=== PATIENT | female | born 1940 | race Caucasian/White ===

== ENCOUNTER 2021-12-31 23:02 | Inpatient (IN) | payer MEDICARE, MEDICAID, SELFPAY ==
[2021-12-31 23:30] VITALS: BP 189/114; PULSE 100; RESP 20; TEMP 36.6; O2SAT 97; BMI 26.0
--- NOTE | 2021-12-31 23:43 | XRR_ITS ---
PROCEDURE INFORMATION: Exam: XR Left Hip Exam date and time: 12/31/2021 11:53 PM Age: 81 years old Clinical indication: Injury or trauma; Fall; Blunt trauma (contusions or hematomas); Left; Hip; Additional info: Fall hip pain TECHNIQUE: Imaging protocol: XR Left hip. Views: 1 view hip with pelvis when performed. COMPARISON: CT pelvis wo con [id number] 07/04/2018 12:35 PM FINDINGS: Bones/joints: Comminuted left intertrochanteric hip fracture with medial angulation of the distal fracture fragment. Soft tissues: Unremarkable. XR/XR hip LT 1V wo/w pel [id number] IMPRESSION: Comminuted left intertrochanteric hip fracture with medial angulation of the distal fracture fragment.
--- NOTE | 2021-12-31 23:43 | XRR_ITS ---
PROCEDURE INFORMATION: Exam: XR Chest Exam date and time: 12/31/2021 11:53 PM Age: 81 years old Clinical indication: Dyspnea; Additional info: Hip fracture TECHNIQUE: Imaging protocol: XR of the chest. Views: 1 view. COMPARISON: CR Chest 1 [place] [id number] 07/04/2018 10:19 AM FINDINGS: Lungs: Nonspecific prominence of the interstitial markings which may be secondary to mild edema versus atypical viral infection. Pleural spaces: Unremarkable. No pleural effusion. No pneumothorax. Heart/Mediastinum: There is mild cardiomegaly. Bones/joints: There has been a median sternotomy. XR/XR chest 1V portable [id number] IMPRESSION: 1. Mild cardiomegaly. 2. Nonspecific prominence of the interstitial markings which may be secondary to mild edema versus atypical viral infection.
--- NOTE | 2021-12-31 23:43 | CTR_ITS ---
PROCEDURE INFORMATION: Exam: CT Head Without Contrast Exam date and time: 01/01/2022 12:48 AM Age: 81 years old Clinical indication: Injury or trauma; Blunt trauma (contusions or hematomas); Consciousness not specified; Patient HX: Nh PT unwitnessed fall TECHNIQUE: Imaging protocol: Computed tomography of the head without contrast. Radiation optimization: All CT scans at this facility use at least one of these dose optimization techniques: automated exposure control; mA and/or kV adjustment per patient size (includes targeted exams where dose is matched to clinical indication); or iterative reconstruction. COMPARISON: CT head wo con* [id number] 07/04/2018 10:52 AM RADIATION DOSE METRICS: Total DLP (mGy-cm): 838.41 FINDINGS: Brain: No acute intracranial hemorrhage or mass effect. There is decreased attenuation in the periventricular white matter, likely from microvascular disease. There are small old lacunar infarcts in the right basal ganglia region and thalamus. Additional old infarct in the right occipital lobe. No definite acute infarct by CT. Cerebral ventricles: Ventricle size is normal for age. Paranasal sinuses: 5 mm retention cyst or polyp in the posterior left ethmoid sinus. Included paranasal sinuses otherwise appear essentially clear. Mastoid air cells: No significant acute finding. Vasculature: Vascular calcifications in the internal carotid and vertebral basilar systems. Bones/joints: No definite acute skull fracture. Soft tissues: No significant acute finding. CT/CT head wo con* [id number] IMPRESSION: 1. No acute intracranial hemorrhage or mass effect. 2. Changes of microvascular disease, and small old infarcts, details above. 3. Other findings discussed above.
[2022-01-01] VITALS (71 sets, daily range): BP systolic 92–186; BP diastolic 39–110; PULSE 74–122; RESP 10–21; TEMP 36.8; O2SAT 90–98; BMI 26.0
--- NOTE | 2022-01-01 00:03 | CTR_ITS ---
PROCEDURE INFORMATION: Exam: CT Pelvis Without Contrast; Skeletal Exam date and time: 01/01/2022 12:51 AM Age: 81 years old Clinical indication: Injury or trauma; Blunt trauma (contusions or hematomas); Left; Hip and pelvic region; Patient HX: Nh PT unwitnessed fall - L hip FX TECHNIQUE: Imaging protocol: Computed tomography images of the pelvis without contrast. Exam focused on the skeletal structures. Radiation optimization: All CT scans at this facility use at least one of these dose optimization techniques: automated exposure control; mA and/or kV adjustment per patient size (includes targeted exams where dose is matched to clinical indication); or iterative reconstruction. COMPARISON: CT pelvis wo con [id number] 07/04/2018 12:35 PM RADIATION DOSE METRICS: Total DLP (mGy-cm): 774.64 FINDINGS: Stomach and bowel: Diverticulosis without diverticulitis. Bones/joints: Intertrochanteric left hip fracture. Soft tissues: 3.1 x 4.9 cm hematoma involving the left adductor muscles. CT/CT bony pelvis [id number] IMPRESSION: 1. Intertrochanteric left hip fracture. 2. Diverticulosis without diverticulitis.
[2022-01-01] MEDS: sodium chloride 0.9% 500 ML IV (00:13)
[2022-01-01] MEDS: ondansetron 2 mg/ML SDV 2 mL 4 MG IVP (00:13)
[2022-01-01] MEDS: morphine 4 mg/mL SDV 1 mL IVP (00:13)
[2022-01-01 00:30] LABS: Basophils # 0.1 10^3/uL (0.0-0.1); Basophils % 0.5 %; Eosinophils # 0.3 10^3/uL (0.0-0.8); Hematocrit 38.9 % (37.0-47.0); Hemoglobin 13.3 g/dL (11.5-15.3); Lymphocytes # 2.2 10^3/uL (0.8-4.8); Lymphocytes % 15.1 %; Mean Corpuscular HGB Conc 34.2 g/dL (30.0-36.0); Mean Corpuscular Volume 93.7 fl (81-99); Monocytes % 6.9 %; Neutrophils # 10.63 10^3/uL (1.8-7.7); Neutrophils % 74.9 %; Nucleated Red Blood Cells % 0 %; Platelet Count 332 10^3/cmm (130-400); Red Blood Count 4.15 10^6/uL (4.1-5.3); Red Cell Distribution Width 12.8 % (12.1-15.1); White Blood Count 14.2 10^3/uL (4.0-10.0)
[2022-01-01 00:53] LABS: Alanine Aminotransferase 15 U/L (0-33); Albumin Level 4.4 g/dL (3.5-5.2); Alkaline Phosphatase 85 IU/L (35-105); Blood Urea Nitrogen 18 mg/dL (8-23); Calcium 11.7 mg/dL (8.5-10.5); Carbon Dioxide 23 mmol/L (22-29); Chloride 90 mmol/L (98-107); Globulin 3.8 g/dL (1.3-4.6); Glucose 271 mg/dL (65-115); Osmolality Calculated 275 mOsm/kg (285-295); Sodium 127 mmol/L (136-145); Total Bilirubin 0.2 mg/dL (0.15-1.2); Total Protein 8.2 g/dL (6.6-8.7)
[2022-01-01 01:00] LABS: Anion Gap 18.6 (5-19); Potassium 4.6 mmol/L (3.5-5.1)
[2022-01-01 01:01] LABS: Aspartate Amino Transferase 23 U/L (0-32)
--- NOTE | 2022-01-01 01:19 | ED_ITS ---
HPI - Extremity Problem General: Chief complaint: Extremity Injury, Lower Stated complaint: LEFT HIP PAIN Time Seen by Provider: 12/31/21 23:30 Source: patient and EMS History of Present Illness: 81-year-old demented group home patient who fell in the group home. She sustained a left lower extremity injury. She has pain with any movement. Further history is not available, as the patient is a poor historian. MD Complaint: extremity pain Onset (ago): hour(s) Pain Consistency: constant Location: left and lower extremity Quality: other Radiation: none Relieving factors: medication Exacerbating factors: range of motion Associated symptoms: Reports other; Deny chest pain Review of Systems General: Reports: ROS unobtainable due to medical condition and ROS unobtainable due to mental status Card: Denies: chest pain Resp: Denies: dyspnea [facility] ED PFSH: Medical History (Updated 01/01/22 @ 01:26 by Rafa Murillo DO) ASHD (arteriosclerotic heart disease) CKD (chronic kidney disease) CVA (cerebral vascular accident) Dementia Diabetes Dyslipidemia HTN (hypertension) Myocardial infarction Thyroid cancer Surgical History S/P CABG (coronary artery bypass graft) Physical Exam Const: GENERAL APPEARANCE: cooperative and frail appearing ORIEN TATION/CONSCIOUSNESS: Yes awake and Yes oriented to person HENMT: COMMON NORMALS: normocephalic and Normal external nose present HEAD & SCALP: normal to inspection and normocephalic FACE & SINUS: normal facial exam NOSE: Normal external nose present Eye: COMMON NORMALS: Equal, round and reactive pupils present and EOMs intact bilaterally PUPIL: Yes Equal, round and reactive pupils present Neck/C-Spine: CERVICAL SPINE: No Cervical spine tenderness Chest: COMMONS NORMALS: normal inspection of the chest Resp: COMMON NORMALS: normal respiratory effort, No use of accessory muscles and clear to auscultation bilaterally AUSCULTATION: clear to auscultation bilaterally Cardio: COMMON NORMALS: regular rate and regular rhythm RATE: regular rate RHYTHM: regular rhythm GI: COMMON NORMALS: Normal to inspection, nondistended, normoactive bowel sounds present, Soft to palpation and non-tender PALPATION: Yes Soft to palpation Extremity: NARRATIVE EXTREMITY EXAM: Exam the left lower extremity reveals shortening deformity of the left lower extremity. There is tenderness with palpation of the left lateral and anterior hip. There is no knee tenderness. Pulses and sensation are intact Neuro: SENSORIUM/ORIENTATION: Yes oriented to person Psych: COMMON NORMALS: cooperative ATTITUDE: Yes calm Course Consultations: Consultation #1: [place] Time: :39 Consultation #2: [place] Time: :39 Vital Signs: Vital signs: Vital Signs Temperature 97.8 F 12/31/21 23:30 Pulse Rate 102 H 01/01/22 01:21 Respiratory Rate 18 01/01/22 01:21 Blood Pressure 109/77 01/01/22 01:21 Pulse Oximetry 96 01/01/22 01:21 MDM - Extremity (Nontraumatic) Medical Decision Making 81-year-old female with a left displaced hip fracture. Orthopedics notified. Hospitalist notified. Lab Data : 01/01/22 00:05 01/01/22 00:[address] 12/31/21 23:43 IMPRESSION: 1. No acute intracranial hemorrhage or mass effect. 2. Changes of microvascular disease, and small old infarcts, details above. 3. Other findings discussed above. Laboratory Results WBC 14.2 10^3/uL (4.0-10.0) H 01/01/22 00:05 RBC 4.15 10^6/uL (4.1-5.3) 01/01/22 00:05 Hgb 13.3 g/dL (11.5-15.3) 01/01/22 00:05 Hct 38.9 % (37.0-47.0) 01/01/22 00:05 MCV 93.7 fl (81-99) 01/01/22 00:05 MCH 32.0 pg (28.0-34.0) 01/01/22 00:05 MCHC 34.2 g/dL (30.0-36.0) 01/01/22 00:05 RDW 12.8 % (12.1-15.1) 01/01/22 00:05 Plt Count 332 10^3/cmm (130-400) 01/01/22 00:05 MPV 10.0 fL (7.4-10.4) 01/01/22 00:05 Neut % (Auto) 74.9 % 01/01/22 00:05 Lymph % (Auto) 15.1 % 01/01/22 00:05 [place] % (Auto) 6.9 % 01/01/22 00:05 Eos % (Auto) 2.0 % 01/01/22 00:05 Baso % (Auto) 0.5 % 01/01/22 00:05 Neut # (Auto) 10.63 10^3/uL (1.8-7.7) H 01/01/22 00:05 Lymph # (Auto) 2.2 10^3/uL (0.8-4.8) 01/01/22 00:05 [place] # (Auto) 1.0 10^3/uL (0.2-0.9) H 01/01/22 00:05 Eos # (Auto) 0.3 10^3/uL (0.0-0.8) 01/01/22 00:05 Baso # (Auto) 0.1 10^3/uL (0.0-0.1) 01/01/22 00:05 Nucleated RBC % (auto) 0 % 01/01/22 00:05 Nucleated RBCs # 0.0 /100WBC 01/01/22 00:05 Sodium 127 mmol/L (136-145) L 01/01/22 00:05 Potassium 4.6 mmol/L (3.5-5.1) 01/01/22 00:05 Chloride 90 mmol/L (98-107) L 01/01/22 00:05 Carbon Dioxide 23 mmol/L (22-29) 01/01/22 00:05 Anion Gap 18.6 (5-19) 01/01/22 00:05 BUN 18 mg/dL (8-23) 01/01/22 00:05 Creatinine 0.9 mg/dL (0.5-0.9) 01/01/22 00:05 GFR Calculation Not Reportable 01/01/22 00:05 Glucose 271 mg/dL (65-115) H 01/01/22 00:05 Calculated Osmolality 275 mOsm/kg (285-295) L 01/01/22 00:05 Calcium 11.7 mg/dL (8.5-10.5) H 01/01/22 00:05 Total Bilirubin 0.2 mg/dL (0.15-1.2) 01/01/22 00:05 AST 23 U/L (0-32) 01/01/22 00:05 ALT 15 U/L (0-33) 01/01/22 00:05 Alkaline Phosphatase 85 IU/L (35-105) 01/01/22 00:05 Total Protein 8.2 g/dL (6.6-8.7) 01/01/22 00:05 Albumin 4.4 g/dL (3.5-5.2) 01/01/22 00:05 Globulin 3.8 g/dL (1.3-4.6) 01/01/22 00:05 Discharge Plan Discharge Patient Disposition: Admitted As Inpatient Clinical Impression: Closed hip fracture Qualifiers: Encounter type: initial encounter Laterality: left Qualified Code(s): S72.002A - Fracture of unspecified part of neck of left femur, initial encounter for closed fracture Condition: Stable Coding Level of Care Code ED Manager Imaging for Rik Fwjonatan Exam Comprehensive
--- NOTE | 2022-01-01 02:45 | PM.HP ---
Providers/Chief Complaint Primary Care Provider: Juanjo Quiros Jr, MD Chief Complaint: LEFT HIP PAIN History of Present Illness Radha Velásquez is a 81 year old female with a past medical history of dementia, history of CVA, history of CAD status post CABG hypertension, CKD, dyslipidemia, hypothyroidism, type 2 diabetes mellitus who presents [facility] from local intermediate due to a fall, left lower extremity pain. Currently patient is alert to person, not to place, not to time, she is a poor historian given her dementia, all she tells me that her left leg is hurting her. She is saturating in the high 90s on room air, blood pressure 109/77, pulse 102, respiratory rate 18. She has no other complaints. In the emergency room she was found to have a left hip fracture, serum sodium 127, hospitalist team was called for admission Review of Systems General: Reports: ROS unobtainable due to mental status Medications/Allergies Home Medications Medication Instructions Recorded Confirmed Last Taken Type aspirin 81 mg tablet,delayed 81 mg PO DAILY 12/01/19 01/03/21 Unknown History release (Aspir-) levothyroxine 100 mcg capsule 100 mcg PO DAILY 12/01/19 01/03/21 Unknown History lovastatin 20 mg tablet 20 mg PO DAILY 12/01/19 01/03/21 Unknown History nitroglycerin 0.4 mg sublingual 0.4 mg SUBLINGUAL Q5M PRN 12/01/19 01/03/21 Unknown History tablet (Nitrostat) metformin 1,000 mg tablet See Rx Instructions PO BID 01/12/20 01/03/21 Unknown History ergocalciferol (vitamin D2) 50 mcg 50 mcg PO DAILY 07/05/20 01/03/21 Unknown History (2,000 unit) tablet citalopram 10 mg tablet (Celexa) 10 mg PO DAILY 01/03/21 01/03/21 Unknown History Allergies Allergy/AdvReac Type Severity Reaction Status Date / Time codeine Allergy Unknown Unknown Verified 07/05/20 15:17 iodine Allergy Unknown Unknown Verified 07/05/20 15:17 Penicillins Allergy Unknown Unknown Verified 07/05/20 15:17 PFSH Acute PFSH: Medical History (Updated 01/01/22 @ 02:48 by Chris Lynne MD) ASHD (arteriosclerotic heart disease) CKD (chronic kidney disease) CVA (cerebral vascular accident) Dementia Diabetes Dyslipidemia HTN (hypertension) Myocardial infarction Thyroid cancer Surgical History (Updated 01/01/22 @ 02:47 by Chris Lynne MD) History of bilateral salpingectomy S/P CABG (coronary artery bypass graft) S/P hysterectomy S/P oophorectomy S/P thyroidectomy Vitals/I&O/Wt Last Vital Signs Temp 97.8 F 12/31/21 23:30 Pulse 102 H 01/01/22 01:21 Resp 18 01/01/22 01:21 BP 109/77 01/01/22 01:21 Pulse Ox 96 01/01/22 01:21 Weight last 48 hrs Weight 68.855 kg Physical Exam Const: COMMON NORMALS: no acute distress EXAM LIMITATIONS: altered mental status ORIENTATION/CONSCIOUSNESS: Yes awake, Yes oriented to person and Yes confused; not oriented to place and not oriented to time HENMT: COMMON NORMALS: normocephalic HEAD & SCALP: normocephalic Eye: COMMON NORMALS: Equal, round and reactive pupils present Resp: COMMON NORMALS: normal respiratory effort, No retractions, No use of accessory muscles and clear to auscultation bilaterally AUSCULTATION: clear to auscultation bilaterally Cardio: COMMON NORMALS: no JVD, regular rate, regular rhythm, S1 normal heart sound present and S2 normal heart sound present RATE: regular rate RHYTHM: regular rhythm HEART SOUNDS: S1 normal heart sound present and S2 normal heart sound present GI: COMMON NORMALS: Normal to inspection, nondistended, normoactive bowel sounds present, Soft to palpation, non-tender, No hepatosplenomegaly present, no masses and no bruits PALPATION: Yes Soft to palpation and Yes No hepatosplenomegaly present Extremity: COMMON NORMALS: capillary refill normal, no clubbing, cyanosis or edema, no calf tenderness and no pedal edema Data : 01/01/22 00:05 01/01/22 00:05 A&P Assessment and plan (1) Closed hip fracture: Status: Acute Qualifiers: Encounter type: initial encounter Laterality: left Qualified Code(s): S72.002A - Fracture of unspecified part of neck of left femur, initial encounter for closed fracture (2) Dementia: Status: Acute (3) Diabetes: Status: Acute (4) CVA (cerebral vascular accident): Status: Acute (5) ASHD (arteriosclerotic heart disease): Status: Acute (6) HTN (hypertension): Status: Acute (7) CKD (chronic kidney disease): Status: Acute (8) Dyslipidemia: Status: Acute (9) S/P CABG (coronary artery bypass graft): Status: Acute (10) Hyponatremia: Status: Acute Plan Left hip fracture -Orthopedic service on consult -N.p.o. -Morphine for pain, Zofran for nausea -Plan for surgical intervention this morning -PT OT after surgery -SCDs for DVT prophylaxis, Lovenox after surgery -Full code Hyponatremia, etiology unclear, possibly secondary dehydration, follow UA, IV hydration History of CAD, troponin series History of CVA History of dementia, will have to discuss with intermediate in a.m. her baseline cognitive level of functioning see if there is any acute change, to see if she is ambulatory Attestations Medical Necessity Statement*: Patient requires hospitalization for left hip fracture, outpatient with observation Coding Level of Care Code Acute Grab Hooker for Rik Galavizd Diagnoses Closed hip fracture S72.002A Encounter type: initial encounter Laterality: left Dementia F03.90 Diabetes E11.9 CVA (cerebral vascular accident) I63.9 ASHD (arteriosclerotic heart disease) I25.10 HTN (hypertension) I10 CKD (chronic kidney disease) N18.9 Dyslipidemia E78.5 S/P CABG (coronary artery bypass graft) Z95.1 Hyponatremia E87.1
[2022-01-01 04:01] LABS: Troponin(5th) Baseline 31 ng/L (0-10)
[2022-01-01 04:04] LABS: Estmated Average Glucose 192; Hemoglobin A1C 8.3 % (4.0-6.0)
--- NOTE | 2022-01-01 04:37 | ECG_ITS ---
[facility] Test Date: 2022-01-01 Pat Name: Radha Velásquez Department: Room: Gender: Female Assembler Body: : 1940 Requested By: Chris Lynne Order Number: [id number] Giselle MD: Angus Delcid M.D. Measurements Intervals [place] Rate: 98 P: 43 IL: 114 QRS: -59 QRSD: 145 T: 19 QT: 365 QTc: 467 Interpretive Statements SINUS RHYTHM WITH SINUS ARRHYTHMIA WITH SHORT [place] INTERVAL INDETERMINATE AXIS RIGHT BUNDLE BRANCH BLOCK [120+ ms QRS DURATION, UPRIGHT V1, 40+ ms S IN I/aVL/V4/V5/V6] LEFT ANTERIOR FASCICULAR BLOCK [QRS AXIS <= -45, QR IN I, RS IN II] Compared to ECG 01/01/2022 00:22:33 Left anterior fascicular block now present Sinus tachycardia no longer present Electronically Signed On 01-01-2022 9:03:51 CDT by Angus Delcid M.D. [id number]
[2022-01-01] MEDS: pantoprazole 40 mg SDV IVP (05:28)
[2022-01-01] MEDS: morphine 4 mg/mL SDV 1 mL 2 MG IVP ×4 (05:35→20:44)
[2022-01-01 06:07] LABS: Troponin 5 2HR 30.04 ng/L (0-10)
[2022-01-01 06:10] LABS: Troponin 5 2HR Delta -0.96 ABS# (0-10)
[2022-01-01 08:03] LABS: Glucose Point of Care 343 mg/dL (70-110)
[2022-01-01] MEDS: insulin lispro 100 unit/1 mL SUBCUT ×3 (08:04→18:21)
[2022-01-01] MEDS: atorvastatin 40 mg Tablet 20 MG PO (08:05)
[2022-01-01] MEDS: docusate sodium 100 mg Capsule PO ×2 (08:05→18:21)
[2022-01-01] MEDS: cholecalciferol (vitamin D3) 1,000 unit Tablet 2000 UNIT PO (08:05)
[2022-01-01] MEDS: aspirin 81 mg EC Tablet PO (08:05)
[2022-01-01 08:26] LABS: Cortisol Random 18.29 ug/dL (2.47-19.5)
--- NOTE | 2022-01-01 08:27 | PM.CONSULT ---
Providers/Reason For Consult Consulting Physician/Specialty*: Orthopedics Reason for Consult*: Left hip pain Attending Physician: Chris Lynne MD Primary Care Provider: Juanjo Quiros Jr, MD History of Present Illness History of Present Illness Radha Velásquez is a 81 year old female was evaluated in ER bay 9 with no family present in a poor historian due to her dementia. She was reporting left hip pain. Most of the information is gleaned from the chart and provided by the nurse. PMH of dementia, history of CVA, history of CAD status post CABG hypertension, CKD, dyslipidemia, hypothyroidism, type 2 diabetes mellitus who presents to [facility] ER from local long-term due to a fall.? Patient is a poor historian given her dementia. X-rays confirmed a left hip fracture orthopedics was consulted. An extensive review of the patient's past medical history, surgical history, allergies, medications, family history, social history, and review of systems was completed Review of Systems General: Reports: ROS unobtainable due to mental status Medications/Allergies Home Medications Medication Instructions Recorded Confirmed Last Taken Type aspirin 81 mg tablet,delayed 81 mg PO DAILY 12/01/19 01/03/21 Unknown History release (Aspir-) levothyroxine 100 mcg capsule 100 mcg PO DAILY 12/01/19 01/03/21 Unknown History lovastatin 20 mg tablet 20 mg PO DAILY 12/01/19 01/03/21 Unknown History nitroglycerin 0.4 mg sublingual 0.4 mg SUBLINGUAL Q5M PRN 12/01/19 01/03/21 Unknown History tablet (Nitrostat) metformin 1,000 mg tablet See Rx Instructions PO BID 01/12/20 01/03/21 Unknown History ergocalciferol (vitamin D2) 50 mcg 50 mcg PO DAILY 07/05/20 01/03/21 Unknown History (2,000 unit) tablet citalopram 10 mg tablet (Celexa) 10 mg PO DAILY 01/03/21 01/03/21 Unknown History Allergies Allergy/AdvReac Type Severity Reaction Status Date / Time codeine Allergy Unknown Unknown Verified 07/05/20 15:17 iodine Allergy Unknown Unknown Verified 07/05/20 15:17 Penicillins Allergy Unknown Unknown Verified 07/05/20 15:17 Current Medications Generic Name Dose Route Start Last Admin Trade Name Freq PRN Reason Stop Dose Admin Aspirin 81 mg 01/01/22 09:00 01/01/22 08:05 Aspirin 81 Mg Ec Tablet PO 81 mg DAILY MINOR Administration Atorvastatin Calcium 20 mg 01/01/22 09:00 01/01/22 08:05 Atorvastatin 40 Mg Tablet PO 20 mg DAILY MINOR Administration Docusate Sodium 100 mg 01/01/22 09:00 01/01/22 08:05 Docusate Sodium 100 Mg Capsule PO 100 mg BID MINOR Administration Insulin Human Lispro 0 unit 01/01/22 08:00 01/01/22 08:04 Insulin Lispro 100 Unit/1 Ml SUBCUT 10 unit TIDWM MINOR Administration Protocol Morphine Sulfate 2 mg 01/01/22 02:36 01/01/22 05:35 Morphine 4 Mg/Ml Sdv 1 Ml IVP 2 mg Q4H PRN Administration SEVERE PAIN Pantoprazole Sodium 40 mg 01/01/22 02:45 01/01/22 05:28 Pantoprazole 40 Mg Sdv IVP 40 mg Q24H MINOR Administration Vitamin D 2,000 unit 01/01/22 09:00 01/01/22 08:05 Cholecalciferol (Vitamin D3) 1,000 Unit Tablet PO 2,000 unit DAILY MINOR Administration PFSH Acute PFSH: Medical History (Updated 01/01/22 @ 08:33 by Freeamn Hook PA-C) ASHD (arteriosclerotic heart disease) CKD (chronic kidney disease) CVA (cerebral vascular accident) Dementia Diabetes Dyslipidemia HTN (hypertension) Myocardial infarction Thyroid cancer Surgical History (Updated 01/01/22 @ 02:47 by Chris Lynne MD) History of bilateral salpingectomy S/P CABG (coronary artery bypass graft) S/P hysterectomy S/P oophorectomy S/P thyroidectomy Vitals/I&O/Wt Last Vital Signs Temp 98.2 F 01/01/22 07:22 Pulse 74 01/01/22 07:22 Resp 17 01/01/22 07:22 BP 140/70 01/01/22 07:22 Pulse Ox 98 01/01/22 07:22 12/31/21 01/01/22 01/01/22 22:59 06:59 14:59 Intake Total 500 / 500 Balance 500 / 500 Weight last 48 hrs Weight 151 lb 12.8 oz Physical Exam Narrative: Patient was evaluated in ER bay 9 confused due to dementia. Palpable pain over the left hip positive logroll with obvious external rotation of the left lower extremity. Skin is clear warm feet are in good cap refill calves are supple no medial thigh tenderness. No apparent palpable pain in the low back thoracic or cervical spine she is moving both upper extremities with no obvious distress. HENMT: COMMON NORMALS: normocephalic and atraumatic HEAD & SCALP: normocephalic and atraumatic Resp: COMMON NORMALS: normal respiratory effort Cardio: COMMON NORMALS: regular rate and regular rhythm RATE: regular rate RHYTHM: regular rhythm GI: COMMON NORMALS: non-tender Data : 01/01/22 00:05 01/01/22 00:05 A&P Assessment and plan (1) Closed intertrochanteric fracture of left hip: We will await medical clearance proceed with open reduction internal fixation with a trochanteric femoral nail to the left hip. Discussed with Dr. Cross and he agrees above-stated plan. Status: Acute (2) Dementia: Status: Acute Coding Level of Care Code Acute Marketing Mgr for [facility] Diagnoses Closed intertrochanteric fracture of left hip S72.142A Dementia F03.90
[2022-01-01 08:28] LABS: T3 Free 1.5 PG/ML (2.0-4.4); Thyroid Stimulating Hormone 77.37 uIU/mL (0.27-4.20)
[2022-01-01] MEDS: dextrose 5%-sod chloride 0.9% 1,000 ML 75 ML IV ×2 (08:30→20:43)
--- NOTE | 2022-01-01 08:37 | ECG_ITS ---
[facility] Test Date: 2022-01-01 Pat Name: Radha Velásquez Department: Room: Gender: Female Program Development Specialist: : 1940 Requested By: Chris Lynne Order Number: [id number] Giselle MD: Angus Delcid M.D. Measurements Intervals [place] Rate: 101 P: 66 SC: 115 QRS: -27 QRSD: 148 T: 23 QT: 383 QTc: 498 Interpretive Statements SINUS TACHYCARDIA WITH SHORT SC INTERVAL RIGHT BUNDLE BRANCH BLOCK [120+ ms QRS DURATION, UPRIGHT V1, 40+ ms S IN I/aVL/V4/V5/V6] Compared to ECG 07/04/2018 09:55:42 Indeterminate axis now present Electronically Signed On 01-01-2022 9:04:30 CDT by Angus Delcid M.D. [id number]
[2022-01-01 08:38] LABS: Creatine Phosphokinase 71 U/L (26-192)
--- NOTE | 2022-01-01 10:06 | PC.PHAR ---
pt is from [facility]-medications entered are from the pts mar from [facility]
[2022-01-01 10:32] LABS: Creatine Phosphokinase 62 U/L (26-192)
[2022-01-01 10:34] LABS: Troponin 5 6HR 34.98 ng/L (0-10)
[2022-01-01 10:35] LABS: Troponin 5 6HR Delta 3.98 ng/L (0-12)
--- NOTE | 2022-01-01 10:38 | PC.CHAP ---
Pastoral Care Encounter/Spiritual Assessment Type of Contact [] Declined plastics supervisor visit [] Patient/Family/Request visit [] Outpatient visit [] Follow-up visit [] Physician referral [] Code/Alert [x] Routine visit [] Staff referral [] Actively dying [x] Patient sleeping [x] Family support [] [] Out of room [] Palliative care [] [] Receiving care in room [] Pre-surgical visit [] Trauma [] Long length of stay [x] ICU visit [x] Other: no surgery for patient today... requested tray of food... Relational/Emotional Strength [] Patient feels connected with others/family/visitors/staff [] Distress [] Loneliness/isolation [] Abandonment Spirituality of Patient [] Person of Dary [] Attends Denominational of their Dary [] Believes in Prayer [] Reads Bible or Zoroastrian materials [] There are Spiritual issues to be addressed Food Service Supervisor Interventions [x] Prayer [] Active listening [] Non-anxious presence [] Spiritual/emotional support [] Crisis/trauma care [] Spiritual counseling [] Bereavement support [] Provided bereavement packet [] Provided Bible/devotional materials [] Provided toy/stuffed animal, coloring book to patient or family member [] Provided Communion [] Anointing/Jayess [] Salvation [x] Completed spiritual assessment [] Other: Impact on Illness or Injury [] Angry [] Fearful [] Anxious [] Often cries [] Exhaustion [] Unable to work [] Unable to attend jehovah's witness [] Unable to walk/stand [] Unable to read [] Unable to drive [] Unable to eat/drink [] Unable to sleep [] Unable to be with family [] Patient intubated [] Other: Summary Time spent with patient
--- NOTE | 2022-01-01 10:53 | PM.PN ---
Subjective Subjective: Patient was reexamined this morning, patient's granddaughter Katerine is at bedside, during my examination patient recognizes her granddaughter calls her paola, but near the end of my encounter she forgets what her granddaughter is, her granddaughter tells me that her mentation has gradually declined here recently, she is not sure if her mom is taking her levothyroxine at the [facility], patient during my examination complains of right hip pain, denies any chest pain, shortness of breath, she is also telling me how the IV is giving her troubles Vitals/I&O/Wt Last Vital Signs Temp 98.2 F 01/01/22 07:22 Pulse 74 01/01/22 07:22 Resp 16 01/01/22 09:36 BP 140/70 01/01/22 07:22 Pulse Ox 96 01/01/22 09:36 12/31/21 01/01/22 01/01/22 22:59 06:59 14:59 Intake Total 500 / 500 Balance 500 / 500 Weight last 48 hrs Weight 68.855 kg Weight 68.855 kg Physical Exam Const: COMMON NORMALS: no acute distress EXAM LIMITATIONS: altered mental status ORIENTATION/CONSCIOUSNESS: Yes awake, Yes oriented to person and Yes patient obtunded; not oriented to place and not oriented to time Resp: COMMON NORMALS: normal respiratory effort, No retractions, No use of accessory muscles and clear to auscultation bilaterally AUSCULTATION: clear to auscultation bilaterally Cardio: COMMON NORMALS: regular rate, regular rhythm, S1 normal heart sound present and S2 normal heart sound present RATE: regular rate RHYTHM: regular rhythm HEART SOUNDS: S1 normal heart sound present and S2 normal heart sound present GI: COMMON NORMALS: Normal to inspection, nondistended, normoactive bowel sounds present, Soft to palpation, non-tender and No hepatosplenomegaly present PALPATION: Yes Soft to palpation and Yes No hepatosplenomegaly present Extremity: COMMON NORMALS: no pedal edema Neuro: SENSORIUM/ORIENTATION: Yes oriented to person, No oriented to place and No oriented to time Data : 01/01/22 00:05 01/01/22 00:05 A&P Assessment and plan (1) Altered mental status: Status: Acute (2) Closed intertrochanteric fracture of left hip: Status: Acute (3) Hyponatremia: Status: Acute (4) Dementia: Status: Acute (5) Diabetes: Status: Acute (6) CVA (cerebral vascular accident): Status: Acute (7) ASHD (arteriosclerotic heart disease): Status: Acute (8) HTN (hypertension): Status: Acute (9) Myxedema coma: Status: Acute (10) Elevated troponin: Status: Acute (11) Closed hip fracture: Status: Acute Qualifiers: Encounter type: initial encounter Laterality: left Qualified Code(s): S72.002A - Fracture of unspecified part of neck of left femur, initial encounter for closed fracture (12) CKD (chronic kidney disease): Status: Acute (13) Dyslipidemia: Status: Acute (14) S/P CABG (coronary artery bypass graft): Status: Acute Plan Altered mental status -Possibly patient is baseline -However granddaughter tells me that she is a bit more confused than usual, and she has had a gradual decline -UA is still pending -TSH is over 200, low T3 -Monitor mentation -Neurochecks, aspiration precautions -Full code -Lovenox for DVT prophylaxis, SCDs Myxedema coma -TSH to 237.6 -T3 1.5 -Random cortisol 18.29 -Urinalysis pending -Baseline troponin 31 -CK 62 -Lactate elevated 3.0 -Serum sodium 127 -Has a history of hypothyroidism, is on levothyroxine 100 mcg, at the [facility] -Given patient's change in mentation, elevated TSH, elevated lactic acid low serum sodium, will treat for myxedema coma given hyper avidity in mentality and plans for surgery need optimization -Discussed with granddaughter morbidity and mortality/myxedema coma, in addition risk of cardiac arrhythmias and complications with correcting TSH given her age, voiced understanding, all questions answered Plan: -We will give 150 mcg levothyroxine, and lower dose than recommended 200 due to concerns for cardiac arrhythmia given her age -Cytomel 5 mcg p.o. every 12 hours, for 2 doses -1 dose of stress dose hydrocortisone -We will treat for possible UTI, UA is pending, given her elevated white count, and morbidity and mortality associated with infection and myxedema, will treat with Rocephin for now -Recheck TSH, T3, T4 in the afternoon -Monitor hemodynamics closely -Monitor for cardiac arrhythmias -Can proceed to surgery if T3, TSH improved in the next 24 hours Left hip fracture -Orthopedic service on consult -Clears, n.p.o. over midnight -Morphine for pain, Zofran for nausea -Plan for surgical intervention this morning -PT OT after surgery -SCDs for DVT prophylaxis, Lovenox for DVT prophylaxis -Full code Hyponatremia, etiology unclear, possibly secondary dehydration, myxedema coma follow UA, IV hydration Elevated troponins, likely related to fall, possible myxedema coma Hypercalcemia, calcium 11.7, etiology unclear possible myxedema coma Elevated lactic acid, likely related to follow for myxedema coma History of CAD, monitor for chest pain History of CVA History of dementia Type 2 diabetes mellitus, low-dose sliding scale Attestations Medical Necessity Statement*: Patient requires hospitalization, inpatient, greater than 2 midnights, for left hip fracture, hyponatremia, altered mental status, myxedema coma, elevated troponins Time Spent in Patient Care: 35mins Coding Level of Care Code Acute Tape Edge Machine Operator for [facility] Fwd Diagnoses Altered mental status R41.82 Closed intertrochanteric fracture of left hip S72.142A Hyponatremia E87.1 Dementia F03.90 Diabetes E11.9 CVA (cerebral vascular accident) I63.9 ASHD (arteriosclerotic heart disease) I25.10 HTN (hypertension) I10 Myxedema coma E03.5 Elevated troponin R77.8 Closed hip fracture S72.002A Encounter type: initial encounter Laterality: left CKD (chronic kidney disease) N18.9 Dyslipidemia E78.5 S/P CABG (coronary artery bypass graft) Z95.1
[2022-01-01 11:16] LABS: Glucose Point of Care 244 mg/dL (70-110)
[2022-01-01] MEDS: enoxaparin 40 mg/0.4 mL Syringe SUBCUT (11:21)
[2022-01-01] MEDS: levothyroxine 100 mcg SDV 150 MCG IVP (11:22)
[2022-01-01] MEDS: cefTRIAXone 1,000 MG in sodium chloride 0.9% (plus) 50 ML 100 MG IV (11:22)
[2022-01-01] MEDS: hydrocortisone 100 mg/2 mL SDV IVP (12:42)
[2022-01-01] MEDS: liothyronine 5 mcg Tablet PO ×2 (14:29→20:44)
[2022-01-01 14:37] LABS: Glucose Point of Care 194 mg/dL (70-110)
[2022-01-01 18:06] LABS: Glucose Point of Care 240 mg/dL (70-110)
[2022-01-01 18:26] LABS: Free T4 Free Thyroxine 0.94 ng/dL (0.82-1.77); T3 Free 1.6 PG/ML (2.0-4.4); Thyroid Stimulating Hormone 31.32 uIU/mL (0.27-4.20)
[2022-01-01 21:25] LABS: Glucose Point of Care 214 mg/dL (70-110)
[2022-01-02] VITALS (41 sets, daily range): BP systolic 100–160; BP diastolic 42–99; PULSE 83–108; RESP 9–96; TEMP 37.1; O2SAT 90–98
[2022-01-02] MEDS: morphine 4 mg/mL SDV 1 mL 2 MG IVP ×5 (02:18→21:36)
[2022-01-02] MEDS: pantoprazole 40 mg SDV IVP (02:18)
[2022-01-02 04:30] LABS: Basophils % 0.3 %; Eosinophils % 0.2 %; Hematocrit 32.8 % (37.0-47.0); Hemoglobin 10.9 g/dL (11.5-15.3); Lymphocytes # 1.4 10^3/uL (0.8-4.8); Lymphocytes % 13.1 %; Mean Corpuscular HGB Conc 33.2 g/dL (30.0-36.0); Mean Corpuscular Hemoglobin 31.7 pg (28.0-34.0); Mean Corpuscular Volume 95.3 fl (81-99); Mean Platelet Volume 9.9 fL (7.4-10.4); Monocytes # 1.1 10^3/uL (0.2-0.9); Monocytes % 10.1 %; Neutrophils # 7.89 10^3/uL (1.8-7.7); Neutrophils % 75.8 %; Nucleated Red Blood Cells % 0 %; Platelet Count 294 10^3/cmm (130-400); Red Blood Count 3.44 10^6/uL (4.1-5.3); Red Cell Distribution Width 12.9 % (12.1-15.1); White Blood Count 10.4 10^3/uL (4.0-10.0)
[2022-01-02] MEDS: levothyroxine 100 mcg SDV IVP (04:50)
[2022-01-02] MEDS: liothyronine 5 mcg Tablet PO (04:53)
[2022-01-02 05:00] LABS: Alanine Aminotransferase 11 U/L (0-33); Alkaline Phosphatase 79 IU/L (35-105); Anion Gap 15.2 (5-19); Aspartate Amino Transferase 19 U/L (0-32); Blood Urea Nitrogen 17 mg/dL (8-23); Calcium 10.5 mg/dL (8.5-10.5); Carbon Dioxide 21 mmol/L (22-29); Chloride 97 mmol/L (98-107); Globulin 2.8 g/dL (1.3-4.6); Glucose 204 mg/dL (65-115); Magnesium 1.3 mg/dL (1.7-2.3); Osmolality Calculated 275 mOsm/kg (285-295); Phosphorus 2.2 mg/dL (2.5-4.5); Potassium 4.2 mmol/L (3.5-5.1); Sodium 129 mmol/L (136-145); Total Bilirubin 0.4 mg/dL (0.15-1.2); Total Protein 6.8 g/dL (6.6-8.7)
[2022-01-02 05:02] LABS: Lactate (Lactic Acid level) 1.5 mmol/L (0.5-2.2)
[2022-01-02 05:06] LABS: Creatine Phosphokinase 120 U/L (26-192); Free T4 Free Thyroxine 0.89 ng/dL (0.82-1.77); T3 Free 1.6 PG/ML (2.0-4.4); Thyroid Stimulating Hormone 31.77 uIU/mL (0.27-4.20)
[2022-01-02 07:23] LABS: Glucose Point of Care 213 mg/dL (70-110)
[2022-01-02] MEDS: docusate sodium 100 mg Capsule PO (08:10)
[2022-01-02] MEDS: atorvastatin 40 mg Tablet 20 MG PO (08:10)
[2022-01-02] MEDS: cholecalciferol (vitamin D3) 1,000 unit Tablet 2000 UNIT PO (08:10)
[2022-01-02] MEDS: aspirin 81 mg EC Tablet PO (08:11)
[2022-01-02] MEDS: magnesium sulfate premix 4 GM/100 ML PREMIX IV (08:41)
[2022-01-02] MEDS: haloperidol inj 5 mg/mL INJ 1 mL 1 MG IVP (08:49)
--- NOTE | 2022-01-02 08:57 | PC.NURSE ---
Patient confused pulling off vital monitoring equipment. PRN given, Family at bedside.
[2022-01-02] MEDS: LORazepam 2 mg/mL INJ 1 mL 1 MG IVP (10:17)
[2022-01-02] MEDS: FUROsemide 10 mg/mL SDV 2mL 20 MG IVP (10:22)
[2022-01-02] MEDS: cefTRIAXone 1,000 MG in sodium chloride 0.9% (plus) 50 ML 50 MG IV (10:22)
[2022-01-02] MEDS: enoxaparin 40 mg/0.4 mL Syringe SUBCUT (12:35)
[2022-01-02 12:40] LABS: Glucose Point of Care 197 mg/dL (70-110)
--- NOTE | 2022-01-02 16:25 | PM.PN ---
Subjective Subjective: Patient was seen this morning she is alert to person, not to place, not to time, she keeps fidgeting with her IV, wants to pull it out, nursing staff at bedside to reorient her, afebrile overnight, much more alert and awake Vitals/I&O/Wt Last Vital Signs Temp 98.8 F 01/02/22 08:30 Pulse 89 01/02/22 13:00 Resp 12 01/02/22 13:00 BP 139/42 01/02/22 13:00 Pulse Ox 98 01/02/22 13:00 01/02/22 01/02/22 01/02/22 06:59 14:59 22:59 Intake Total 110 / 110 Balance 110 / 110 Weight last 48 hrs Weight 68.855 kg Weight 68.855 kg Physical Exam Const: COMMON NORMALS: no acute distress ORIENTATION/CONSCIOUSNESS: Yes awake and Yes oriented to person; not oriented to place and not oriented to time HENMT: COMMON NORMALS: normocephalic HEAD & SCALP: normocephalic Resp: COMMON NORMALS: normal respiratory effort, No retractions, No use of accessory muscles and clear to auscultation bilaterally AUSCULTATION: clear to auscultation bilaterally Cardio: COMMON NORMALS: regular rate, regular rhythm, S1 normal heart sound present and S2 normal heart sound present RATE: regular rate RHYTHM: regular rhythm HEART SOUNDS: S1 normal heart sound present and S2 normal heart sound present GI: COMMON NORMALS: Normal to inspection, nondistended, normoactive bowel sounds present, Soft to palpation, non-tender and No hepatosplenomegaly present PALPATION: Yes Soft to palpation and Yes No hepatosplenomegaly present Extremity: COMMON NORMALS: no pedal edema Neuro: SENSORIUM/ORIENTATION: Yes oriented to person, No oriented to place and No oriented to time Urinary Catheter Management: Fox: Cath Placed During This Visit: yes Urinary Catheter Date of Insertion: 01/02/22 Urinary Catheter Time of Insertion: 10:00 Data : 01/02/22 03:40 01/02/22 03:40 A&P Assessment and plan (1) Altered mental status: Status: Acute (2) Closed intertrochanteric fracture of left hip: Status: Acute (3) Hyponatremia: Status: Acute (4) Dementia: Status: Acute (5) Diabetes: Status: Acute (6) CVA (cerebral vascular accident): Status: Acute (7) ASHD (arteriosclerotic heart disease): Status: Acute (8) HTN (hypertension): Status: Acute (9) Myxedema coma: Status: Acute (10) Elevated troponin: Status: Acute (11) Closed hip fracture: Status: Acute Qualifiers: Encounter type: initial encounter Laterality: left Qualified Code(s): S72.002A - Fracture of unspecified part of neck of left femur, initial encounter for closed fracture (12) CKD (chronic kidney disease): Status: Acute (13) Dyslipidemia: Status: Acute (14) S/P CABG (coronary artery bypass graft): Status: Acute Plan Altered mental status -Possibly patient is baseline -However granddaughter tells me that she is a bit more confused than usual, and she has had a gradual decline -UA i with evidence of UTI, on Rocephin -TSH is over 200, low T3 -Monitor mentation -Neurochecks, aspiration precautions -Full code -Lovenox for DVT prophylaxis, SCDs Myxedema coma -TSH to 237.6, now 31.77 -T3 1.6 -Random cortisol 18.29 -Urinalysis p with UTI -Baseline troponin 31 -CK 62 -Lactate elevated 1.5 -Serum sodium 129 -Has a history of hypothyroidism, is on [facility]othyroxine [facility] mcg, at the [facility] -Given patient's change in mentation, elevated TSH, elevated lactic acid low serum sodium, will treat for myxedema coma given hyper avidity in mentality and plans for surgery need optimization -Discussed with granddaughter morbidity and mortality/myxedema coma, in addition risk of cardiac arrhythmias and complications with correcting TSH given her age, voiced understanding, all questions answered -Status post 150 mcg levothyroxine, and lower dose than recommended 200 due to concerns for cardiac arrhythmia given her age -Cytomel 5 mcg p.o. every 12 hours, for 2 doses - status post 1 dose of stress dose hydrocortisone Plan -Continue levothyroxine 100 mcg once daily, 1 dose of Cytomel today -Adjust daily dose -Recheck TSH, T3, T4 daily -Monitor hemodynamics closely -Monitor for cardiac arrhythmias -Can proceed to surgery Left hip fracture -Orthopedic service on consult -Clears, n.p.o. over midnight -Morphine for pain, Zofran for nausea -Plan for surgical intervention this morning -PT OT after surgery -SCDs for DVT prophylaxis, Lovenox for DVT prophylaxis -Full code Hyponatremia, etiology unclear, possibly secondary dehydration, myxedema coma IV hydration Elevated troponins, likely related to fall, possible myxedema coma Hypercalcemia, resolved with IV hydration Elevated lactic acid, likely related to follow for myxedema coma History of CAD, monitor for chest pain History of CVA History of dementia Type 2 diabetes mellitus, low-dose sliding scale Attestations Medical Necessity Statement*: Patient requires hospitalization for myxedema coma, infection, proceeding to surgical intervention tomorrow morning Coding Level of Care Code Acute Tubing Machine Operator for g Fwd Diagnoses Altered mental status R41.82 Closed intertrochanteric fracture of left hip S72.142A Hyponatremia E87.1 Dementia F03.90 Diabetes E11.9 CVA (cerebral vascular accident) I63.9 ASHD (arteriosclerotic heart disease) I25.10 HTN (hypertension) I10 Myxedema coma E03.5 Elevated troponin R77.8 Closed hip fracture S72.002A Encounter type: initial encounter Laterality: left CKD (chronic kidney disease) N18.9 Dyslipidemia E78.5 S/P CABG (coronary artery bypass graft) Z95.1
[2022-01-02 17:11] LABS: Glucose Point of Care 226 mg/dL (70-110)
--- NOTE | 2022-01-02 17:59 | PC.SLP ---
Patient was not alert for most the day when the CANE FLUME FEEDING MACHINE OPERATOR attempted assessment. Patient does not want to try anything to eat this evening. CANE FLUME FEEDING MACHINE OPERATOR will try to follow the patient tomorrow.
[2022-01-02] MEDS: LORazepam 2 mg/mL INJ 1 mL 0.5 MG IVP ×2 (18:27→23:49)
[2022-01-02 21:52] LABS: Glucose Point of Care 261 mg/dL (70-110)
[2022-01-03] VITALS (42 sets, daily range): BP systolic 89–178; BP diastolic 47–116; PULSE 77–110; RESP 10–18; TEMP 36.4–37.2; O2SAT 92–100
--- NOTE | 2022-01-03 | SCC_ITS ---
Procedure done: left intramedullary nail for intertrochanteric femur fx 80 seconds of fluoroscopic guidance, for a cumulative dose of 12.07 mGy, was provided to Dr. Cross by the radiology department. C-arm images of the LEFT hip were saved for the patient's permanent record. [facility]
[2022-01-03] MEDS: pantoprazole 40 mg SDV IVP (03:49)
[2022-01-03] MEDS: morphine 4 mg/mL SDV 1 mL 2 MG IVP ×3 (03:49→12:58)
[2022-01-03 04:19] LABS: Basophils % 0.4 %; Eosinophils % 0.4 %; Hematocrit 37.7 % (37.0-47.0); Hemoglobin 11.6 g/dL (11.5-15.3); Lymphocytes # 1.2 10^3/uL (0.8-4.8); Lymphocytes % 10.3 %; Mean Corpuscular HGB Conc 30.8 g/dL (30.0-36.0); Mean Corpuscular Volume 104.1 fl (81-99); Mean Platelet Volume 9.5 fL (7.4-10.4); Monocytes # 1.4 10^3/uL (0.2-0.9); Monocytes % 12.1 %; Neutrophils # 8.58 10^3/uL (1.8-7.7); Neutrophils % 76.4 %; Nucleated Red Blood Cells % 0 %; Platelet Count 241 10^3/cmm (130-400); Red Blood Count 3.62 10^6/uL (4.1-5.3); White Blood Count 11.2 10^3/uL (4.0-10.0)
[2022-01-03 04:45] LABS: Alanine Aminotransferase 11 U/L (0-33); Albumin Level 3.6 g/dL (3.5-5.2); Alkaline Phosphatase 78 IU/L (35-105); Anion Gap 15.5 (5-19); Aspartate Amino Transferase 20 U/L (0-32); Blood Urea Nitrogen 17 mg/dL (8-23); Calcium 10.3 mg/dL (8.5-10.5); Carbon Dioxide 21 mmol/L (22-29); Chloride 96 mmol/L (98-107); Globulin 3.5 g/dL (1.3-4.6); Glucose 253 mg/dL (65-115); Osmolality Calculated 276 mOsm/kg (285-295); Phosphorus 2.6 mg/dL (2.5-4.5); Potassium 4.5 mmol/L (3.5-5.1); Sodium 128 mmol/L (136-145); Total Bilirubin 0.4 mg/dL (0.15-1.2); Total Protein 7.1 g/dL (6.6-8.7)
[2022-01-03 04:47] LABS: Lactate (Lactic Acid level) 1.5 mmol/L (0.5-2.2)
[2022-01-03 04:53] LABS: Creatine Phosphokinase 249 U/L (26-192); Free T4 Free Thyroxine 0.93 ng/dL (0.82-1.77); T3 Free 1.4 PG/ML (2.0-4.4); Thyroid Stimulating Hormone 30.01 uIU/mL (0.27-4.20)
[2022-01-03] MEDS: levothyroxine 100 mcg SDV 75 MCG IVP (05:44)
[2022-01-03 08:51] LABS: Glucose Point of Care 178 mg/dL (70-110)
[2022-01-03] MEDS: LORazepam 2 mg/mL INJ 1 mL 0.5 MG IVP ×2 (09:16→17:59)
--- NOTE | 2022-01-03 09:58 | W.PM.OPSUD ---
Surgery/Procedure H&P Update DATE OF PROCEDURE: January 03, 2022 DATE H&P PERFORMED: 01/01/22 H&P UPDATE INFORMATION: I have reviewed H&P completed within last 30 days, I have examined patient prior to procedure and No changes to prior documentation PLANNED PROCEDURE: Operation Date: 01/03/22 10:00 Proposed Procedures p Trochanteric Femoral Nail(Left) - Barry Cross DO
--- NOTE | 2022-01-03 10:24 | ANES.PREANE2 ---
Pre-Anesthetic Assessment Height/Weight: Height 1.63 m Weight 68.855 kg Temp Pulse Resp BP Pulse Ox 98.8 F 94 18 131/77 98 01/02/22 08:30 01/03/22 05:15 01/03/22 09:45 01/03/22 05:15 01/03/22 09:45 Preop Diagnosis: acute fx Operation Date: 01/03/22 10:00 Proposed Procedures p Trochanteric Femoral Nail(Left) - Barry Cross, DO Familial anesthetic complications: Hx from POA ([facility]) No hx of complications Was Beta Nicolette taken within 24 hours: N/A Was Clonidine taken within 24 hours: N/A Social No alcohol and No tobacco Exam alert, clear to auscultation bilaterally and regular rate & rhythm Confused pulling at lines Airway Comments: Comments: Unable to cooperate with airway exam Pulmonary None reported CV/HEM Congestive Heart Failure, Hypertension and Myocardial Infarction Hx of CABG per family METS < 4 EKG 01/01/22 Interpretive Statements SINUS TACHYCARDIA WITH SHORT PA INTERVAL RIGHT BUNDLE BRANCH BLOCK? [120+ ms QRS DURATION, UPRIGHT V1, 40+ ms S IN I/aVL/V4/V5/V6] Compared to ECG 07/04/2018 09:55:42 Indeterminate axis now present Electronically Signed On 01-01-2022 9:04:30 CDT by Angus Delcid M.D. [email or web address] Chronic Renal Insufficiency Hyponatremia Metabolic Diabetes Mellitus and Thyroid Disease (Myxedma coma ) [facility] [place] Osteoarthritis/DJD Acute fx Neuropsych Cerebrovascular Accident and Dementia Head CT 12/31/21 CT/CT head wo con* [id number] IMPRESSION: 1. No acute intracranial hemorrhage or mass effect. 2. Changes of microvascular disease, and small old infarcts, details above. 3. Other findings discussed above. ? Anesthetic Plan ASA status: 4 Anesthesia: Anesthesia Evaluation and General Other: Consent form POA. We discussed risk and benefits of general anesthesia including PONV, sore throat (sometimes severe), corneal abrasion, positioning and peripheral nerve injuries, life threatening allergic reaction, post operative ICU admission requiring prolonged intubation, stroke, heart attack, , and rare incidences of recall. POA and grandaugthers consent to proceed with general anesthesia. Risk of > 500 ml blood loss (7ml/kg in children): No Medications/Allergies Home Medications Medication Instructions Recorded Confirmed Last Taken Type lovastatin 20 mg tablet 20 mg PO BEDTIME 12/01/19 01/01/22 Unknown History House Supplement 90 ml PO TID 01/01/22 01/01/22 Unknown History acetaminophen 325 mg tablet 650 mg PO Q6H PRN 01/01/22 01/01/22 Unknown History (Tylenol) aspirin 81 mg tablet,delayed 81 mg PO DAILY 01/01/22 01/01/22 Unknown History release bisacodyl 10 mg rectal suppository 10 mg PA DAILY PRN 01/01/22 01/01/22 Unknown History (Dulcolax (bisacodyl)) docusate sodium 100 mg capsule 200 mg PO BEDTIME 01/01/22 01/01/22 Unknown History (Colace) gabapentin 100 mg capsule 100 mg PO BEDTIME 01/01/22 01/01/22 Unknown History levothyroxine 88 mcg tablet 88 mcg PO QAM 01/01/22 01/01/22 Unknown History magnesium hydroxide 400 mg/5 mL 30 ml PO DAILY PRN 01/01/22 01/01/22 Unknown History oral suspension (Milk of Magnesia) metformin 500 mg tablet 500 mg PO BID 01/01/22 01/01/22 Unknown History mirtazapine 15 mg tablet (Remeron) 7.5 mg PO BEDTIME 01/01/22 01/01/22 Unknown History nitroglycerin 0.4 mg sublingual 0.4 mg SUBLINGUAL Q5M PRN 01/01/22 01/01/22 Unknown History tablet (Nitrostat) sodium phosphates 19 gram-7 118 ml PA DAILY PRN 01/01/22 01/01/22 Unknown History gram/118 mL enema (Fleet Enema) Allergies Allergy/AdvReac Type Severity Reaction Status Date / Time codeine Allergy Unknown Unknown Verified 01/01/22 10:06 iodine Allergy Unknown Unknown Verified 01/01/22 10:06 Penicillins Allergy Unknown Unknown Verified 01/01/22 10:06 Current Medications Generic Name Dose Route Start Last Admin Trade Name Freq PRN Reason Stop Dose Admin Aspirin 81 mg 01/01/22 09:00 01/03/22 08:51 Aspirin 81 Mg Ec Tablet PO Not Given DAILY [facility] Atorvastatin Calcium 20 mg 01/01/22 09:00 01/03/22 08:51 Atorvastatin 40 Mg Tablet PO Not Given DAILY [facility] Docusate Sodium 100 mg 01/01/22 09:00 01/03/22 08:51 Docusate Sodium 100 Mg Capsule PO Not Given BID MINOR Enoxaparin Sodium 40 mg 01/01/22 11:30 01/02/22 12:35 Enoxaparin 40 Mg/0.4 Ml Syringe SUBCUT 40 mg Q24H MINOR Administration Gabapentin 100 mg 01/03/22 00:59 01/03/22 01:06 Gabapentin 100 Mg Capsule PO Not Given BEDTIME [facility] Haloperidol Lactate 1 mg 01/02/22 08:35 01/02/22 08:49 Haloperidol Inj 5 Mg/Ml Inj 1 Ml IVP 1 mg Q4H PRN Administration AGITATION Ceftriaxone Sodium 1,000 mg/ 50 mls @ 100 mls/hr 01/01/22 11:00 01/02/22 12:40 Sodium Chloride IV Infused Q24H [facility] Infusion Protocol Insulin Human Lispro 0 unit 01/01/22 08:00 01/03/22 08:50 Insulin Lispro 100 Unit/1 Ml SUBCUT Not Given TIDWM [facility] Protocol Levothyroxine Sodium 75 mcg 01/03/22 06:00 01/03/22 05:44 Levothyroxine 100 Mcg Sdv IVP 75 mcg Q24H MINOR Administration Lorazepam 0.5 mg 01/02/22 13:44 01/03/22 09:16 Lorazepam 2 Mg/Ml Inj 1 Ml IVP 0.5 mg Q4H PRN Administration ANXIETY Mirtazapine 7.5 mg 01/03/22 00:59 01/03/22 01:06 Mirtazapine 15 Mg Tablet PO Not Given BEDTIME MINOR Morphine Sulfate 2 mg 01/01/22 02:36 01/03/22 09:45 Morphine 4 Mg/Ml Sdv 1 Ml IVP 2 mg Q4H PRN Administration SEVERE PAIN Pantoprazole Sodium 40 mg 01/01/22 02:45 01/03/22 03:49 Pantoprazole 40 Mg Sdv IVP 40 mg Q24H MINOR Administration Pantoprazole Sodium 40 mg 01/03/22 09:00 01/03/22 08:[address] 40 Mg Tablet PO Not Given DAILY [facility] Vitamin D 2,000 unit 01/01/22 09:00 01/03/22 08:51 Cholecalciferol (Vitamin D3) 1,000 Unit Tablet PO Not Given DAILY [facility] Anesthesia Medical History ASHD (arteriosclerotic heart disease) CKD (chronic kidney disease) CVA (cerebral vascular accident) Dementia Diabetes Dyslipidemia HTN (hypertension) Myocardial infarction Thyroid cancer Surgical History History of bilateral salpingectomy S/P CABG (coronary artery bypass graft) S/P hysterectomy S/P oophorectomy S/P thyroidectomy Data Anesthesia : 01/03/22 03:54 01/03/22 03:54 Short CBC 01/02/22 01/03/22 Range/Units 03:40 03:54 WBC 10.4 H 11.2 H (4.0-10.0) 10^3/uL Hgb 10.9 L 11.6 (11.5-15.3) g/dL Hct 32.8 L 37.7 (37.0-47.0) % MCV 95.3 104.1 H D (81-99) fl Plt Count 294 241 (130-400) 10^3/cmm Neut % (Auto) 75.8 76.4 % Neut # (Auto) 7.89 H 8.58 H (1.8-7.7) 10^3/uL BMP 01/02/22 01/03/22 03:40 03:54 Sodium 129 L 128 L Potassium 4.2 4.5 Chloride 97 L 96 L Carbon Dioxide 21 L 21 L BUN 17 17 Creatinine 0.9 1.0 H Glucose 204 H 253 H Calcium 10.5 10.3 Cardiac Enzymes 01/01/22 01/01/22 01/02/22 Range/Units 09:48 09:48 03:40 Creatine Kinase 62 120 (26-192) U/L Troponin T Hi Sens 6Hr 34.98 H (0-10) ng/L Troponin T Hi Sens 6Hr Delta 3.98 (0-12) ng/L 01/03/22 Range/Units 03:54 Creatine Kinase 249 H (26-192) U/L Troponin T Hi Sens 6Hr (0-10) ng/L Troponin T Hi Sens 6Hr Delta (0-12) ng/L Liver Function 01/02/22 01/03/22 Range/Units 03:40 03:54 Total Bilirubin 0.4 0.4 (0.15-1.2) mg/dL AST 19 20 (0-32) U/L ALT 11 11 (0-33) U/L Alkaline Phosphatase 79 78 (35-105) IU/L Albumin 4.0 3.6 (3.5-5.2) g/dL Cardiac Studies: No Data to Display
[2022-01-03] MEDS: clindamycin 900 MG/50 ML PREMIX 100 MG IV ×2 (10:56→18:07)
[2022-01-03 11:02] LABS: T4 Total 4.4 mcg/dL (5.1-11.9)
--- NOTE | 2022-01-03 11:22 | XR_ITS ---
WS: [id number] Exam: XR hip LT 1V wo/w pel [id number] Date/Time of Exam: 01/03/2022 11:22 AM Reason For Exam: OR PICS Intraoperative AP and lateral C-arm images of the left hip are submitted for evaluation. There is internal orthopedic fixation involving an intertrochanteric fracture of the right hip. An in tramedullary rome and femoral neck screw stabilize a fracture in satisfactory alignment for healing. XR/XR hip LT 1V wo/w pel [id number] IMPRESSION: 1. Internal orthopedic fixation involving an intertrochanteric fracture of the left hip. Alignment is satisfactory for healing.
--- NOTE | 2022-01-03 11:26 | P.OP_ITS ---
Operative Report Date of procedure: January 03, 2022 Pre-op diagnosis: Preop Diagnosis left Intertrochanteric hip fracture Post-op diagnosis: same Procedure done: left intramedullary nail for intertrochanteric femur fx Surgeon: Barry Cross Aligner Barrel And Receiver: Freeman Hook Aligner Barrel And Receiver: The rn medical surgical, Freeman Hook, PAC was needed for his expertise with fracture care. He was important and necessary throughout the procedure to complete in a safe and timely manner. He assisted with patient positioning prepping and draping tissue retraction suctioning of the operative field protection of the critical structures and tissue closure Estimated blood loss (mL): 30 Procedure: left intramedullary nail for intertrochanteric femur fx
--- NOTE | 2022-01-03 11:51 | PC.CHAP ---
Pastoral Care Encounter/Spiritual Assessment Type of Contact [] Declined archivist military history visit [] Patient/Family/Request visit [] Outpatient visit [] Follow-up visit [] Physician referral [] Code/Alert [x] Routine visit [] Staff referral [] Actively dying [] Patient sleeping [x] Family support [] [] Out of room [] Palliative care [] [] Receiving care in room [] Pre-surgical visit [] Trauma [] Long length of stay [x] ICU visit [x] Other: preparing for surgery... patient has dementia Relational/Emotional Strength [] Patient feels connected with others/family/visitors/staff [] Distress [] Loneliness/isolation [] Abandonment Spirituality of Patient [] Person of Dary [] Attends Presybeterian of their Dary [] Believes in Prayer [] Reads Bible or Druze materials [] There are Spiritual issues to be addressed Elevator Tender Interventions [x] Prayer [] Active listening [] Non-anxious presence [] Spiritual/emotional support [] Crisis/trauma care [] Spiritual counseling [] Bereavement support [] Provided bereavement packet [] Provided Bible/devotional materials [] Provided toy/stuffed animal, coloring book to patient or family member [] Provided Communion [] Anointing/[place] [] Salvation [x] Completed spiritual assessment [] Other: Impact on Illness or Injury [] Angry [] Fearful [] Anxious [] Often cries [] Exhaustion [] Unable to work [] Unable to attend spiritism [] Unable to walk/stand [] Unable to read [] Unable to drive [] Unable to eat/drink [] Unable to sleep [] Unable to be with family [] Patient intubated [] Other: Summary Time spent with patient
--- NOTE | 2022-01-03 12:07 | PC.NURSE ---
Report called to JAIMIE Marshall, MS [phone]. Family notified. Belongings to be taken to room.
--- NOTE | 2022-01-03 13:08 | P.PN_ITS ---
Subjective Subjective: Patient was seen this morning, family at bedside, she continues to have episodes of agitation, she is pulling out her IV lines, complaining of hip pain, Vitals/I&O/Wt Last Vital Signs Temp 98.7 F 01/03/22 12:20 Pulse 101 H 01/03/22 13:00 Resp 18 01/03/22 13:00 BP 174/85 01/03/22 13:00 Pulse Ox 93 01/03/22 13:00 01/02/22 01/03/22 01/03/22 22:59 06:59 14:59 Intake Total 1100 / 1210 450 / 450 Output Total 1600 / 1600 150 / 1750 130 / 130 Balance -500 / -390 -150 / -540 320 / 320 Physical Exam Const: COMMON NORMALS: no acute distress EXAM LIMITATIONS: altered mental status Resp: COMMON NORMALS: normal respiratory effort, No retractions, No use of accessory muscles and clear to auscultation bilaterally AUSCULTATION: clear to auscultation bilaterally Cardio: COMMON NORMALS: regular rate, regular rhythm, S1 normal heart sound present and S2 normal heart sound present RATE: regular rate RHYTHM: regular rhythm HEART SOUNDS: S1 normal heart sound present and S2 normal heart sound present GI: COMMON NORMALS: Normal to inspection, nondistended, normoactive bowel sounds present, Soft to palpation, non-tender and No hepatosplenomegaly present PALPATION: Yes Soft to palpation and Yes No hepatosplenomegaly present Extremity: COMMON NORMALS: no pedal edema Urinary Catheter Management: Fox: Cath Placed During This Visit: yes Reason for Continuing Indwelling Catheter: Accurate Measurement of Urinary Output in Critically Ill Patients Urinary Catheter Date of Insertion: 01/02/22 Urinary Catheter Time of Insertion: 10:00 Data : 01/03/22 03:54 01/03/22 03:54 A&P Assessment and plan (1) Altered mental status: Status: Acute (2) Closed intertrochanteric fracture of left hip: Status: Acute (3) Hyponatremia: Status: Acute (4) Dementia: Status: Acute (5) Diabetes: Status: Acute (6) CVA (cerebral vascular accident): Status: Acute (7) ASHD (arteriosclerotic heart disease): Status: Acute (8) HTN (hypertension): Status: Acute (9) Myxedema coma: Status: Acute (10) Elevated troponin: Status: Acute (11) Closed hip fracture: Status: Acute Qualifiers: Encounter type: initial encounter Laterality: left Qualified Code(s): S72.002A - Fracture of unspecified part of neck of left femur, initial encounter for closed fracture (12) CKD (chronic kidney disease): Status: Acute (13) Dyslipidemia: Status: Acute (14) S/P CABG (coronary artery bypass graft): Status: Acute Plan Altered mental status -Possibly patient is baseline -However granddaughter tells me that she is a bit more confused than usual, and she has had a gradual decline -UA i with evidence of UTI, on Rocephin -TSH is over 200, low T3 -Monitor mentation -Neurochecks, aspiration precautions -Full code -Lovenox for DVT prophylaxis, SCDs Myxedema coma -TSH to 237.6, now 31.77 -T3 1.6 -Random cortisol 18.29 -Urinalysis p with UTI -Baseline troponin 31 -CK 62 -Lactate elevated 1.5 -Serum sodium 129 -Has a history of hypothyroidism, is on levothyroxine 100 mcg, at the half-way -Given patient's change in mentation, elevated TSH, elevated lactic acid low serum sodium, will treat for myxedema coma given hyper avidity in mentality and plans for surgery need optimization -Discussed with granddaughter morbidity and mortality/myxedema coma, in addition risk of cardiac arrhythmias and complications with correcting TSH given her age, voiced understanding, all questions answered -Status post 150 mcg levothyroxine, and lower dose than recommended 200 due to concerns for cardiac arrhythmia given her age -Cytomel 5 mcg p.o. every 12 hours, for 2 doses - status post 1 dose of stress dose hydrocortisone Plan -Continue levothyroxine 150 mg p.o. daily -Adjust daily dose -Recheck TSH, T3, T4 daily -Monitor hemodynamics closely -Monitor for cardiac arrhythmias -Can proceed to surgery Left hip fracture -Orthopedic service on consult -N.p.o., will undergo surgical intervention today -Morphine for pain, Zofran for nausea -PT OT after surgery -SCDs for DVT prophylaxis, Lovenox for DVT prophylaxis -Full code Hyponatremia, etiology unclear, possibly secondary dehydration, myxedema coma IV hydration Elevated troponins, likely related to fall, possible myxedema coma Hypercalcemia, resolved with IV hydration Elevated lactic acid, likely related to follow for myxedema coma History of CAD, monitor for chest pain History of CVA History of dementia Type 2 diabetes mellitus, low-dose sliding scale Attestations Medical Necessity Statement*: Patient requires hospitalization for hip fracture, myxedema coma, requiring inpatient admission, UTI Coding Level of Care Code Acute Family Reunification Specialist for Chg Fwd Diagnoses Altered mental status R41.82 Closed intertrochanteric fracture of left hip S72.142A Hyponatremia E87.1 Dementia F03.90 Diabetes E11.9 CVA (cerebral vascular accident) I63.9 ASHD (arteriosclerotic heart disease) I25.10 HTN (hypertension) I10 Myxedema coma E03.5 Elevated troponin R77.8 Closed hip fracture S72.002A Encounter type: initial encounter Laterality: left CKD (chronic kidney disease) N18.9 Dyslipidemia E78.5 S/P CABG (coronary artery bypass graft) Z95.1
--- NOTE | 2022-01-03 16:09 | ANE.PACU2 ---
Inpatient post-anesthesia follow up: Airway intact: Yes Vital signs: Temperature 98.6 F Pulse Rate 92 Respiratory Rate 18 Blood Pressure 154/80 Pulse Oximetry 96 Oxygen Delivery Me thod Room Air Oxygen Flow Rate 6 Fraction of Inspir ed Oxygen Hydration adequate: Yes Nausea and vomiting: No Pain level: 1 Mental status: Baseline
[2022-01-03 18:14] LABS: Glucose Point of Care 322 mg/dL (70-110)
[2022-01-03] MEDS: insulin lispro 100 unit/1 mL SUBCUT (18:17)
[2022-01-03 18:20] LABS: Glucose Point of Care 269 mg/dL (70-110)
[2022-01-03] MEDS: mirtazapine 15 mg Tablet 7.5 MG PO (22:58)
[2022-01-03] MEDS: gabapentin 100 mg Capsule PO (22:59)
[2022-01-03] MEDS: cefTRIAXone 1,000 MG in sodium chloride 0.9% (plus) 50 ML 100 MG IV (22:59)
[2022-01-03] MEDS: enoxaparin 40 mg/0.4 mL Syringe SUBCUT (22:59)
[2022-01-04] VITALS (7 sets, daily range): BP systolic 132–151; BP diastolic 55–86; PULSE 75–99; RESP 18; TEMP 35.9–37.1; O2SAT 92–97
[2022-01-04] MEDS: morphine 4 mg/mL SDV 1 mL 2 MG IVP (01:16)
--- NOTE | 2022-01-04 01:22 | PC.NURSE ---
PATIENT STILL HAS YET TO VOID AT THIS TIME. THIS RN PREFORMED BLADDER SCAN. BLADDER SCAN SHOWS PATIENT HAS [address] MUÑOZ NOTIFIED AT THIS TIME. NEW ORDER RECEIVED TO STRAIGHT CATH X1.
[2022-01-04] MEDS: pantoprazole 40 mg SDV IVP (02:20)
[2022-01-04] MEDS: clindamycin 900 MG/50 ML PREMIX 100 MG IV (02:20)
[2022-01-04 05:15] LABS: Basophils % 0.3 %; Eosinophils % 0.3 %; Hematocrit 30.7 % (37.0-47.0); Hemoglobin 9.9 g/dL (11.5-15.3); Lymphocytes # 1.2 10^3/uL (0.8-4.8); Lymphocytes % 12.3 %; Mean Corpuscular HGB Conc 32.2 g/dL (30.0-36.0); Mean Corpuscular Hemoglobin 31.6 pg (28.0-34.0); Mean Corpuscular Volume 98.1 fl (81-99); Mean Platelet Volume 10.1 fL (7.4-10.4); Monocytes # 1.3 10^3/uL (0.2-0.9); Monocytes % 13.1 %; Neutrophils # 7.07 10^3/uL (1.8-7.7); Neutrophils % 73.5 %; Nucleated Red Blood Cells % 0 %; Platelet Count 261 10^3/cmm (130-400); Red Blood Count 3.13 10^6/uL (4.1-5.3); White Blood Count 9.6 10^3/uL (4.0-10.0)
[2022-01-04] MEDS: levothyroxine 150 mcg Tablet PO (05:32)
[2022-01-04 05:42] LABS: Alanine Aminotransferase 12 U/L (0-33); Albumin Level 3.2 g/dL (3.5-5.2); Alkaline Phosphatase 82 IU/L (35-105); Anion Gap 15.8 (5-19); Aspartate Amino Transferase 35 U/L (0-32); Blood Urea Nitrogen 18 mg/dL (8-23); Calcium 9.8 mg/dL (8.5-10.5); Carbon Dioxide 21 mmol/L (22-29); Chloride 99 mmol/L (98-107); Globulin 3.3 g/dL (1.3-4.6); Glucose 183 mg/dL (65-115); Magnesium 1.5 mg/dL (1.7-2.3); Osmolality Calculated 281 mOsm/kg (285-295); Phosphorus 1.6 mg/dL (2.5-4.5); Potassium 3.8 mmol/L (3.5-5.1); Sodium 132 mmol/L (136-145); Total Bilirubin 0.6 mg/dL (0.15-1.2); Total Protein 6.5 g/dL (6.6-8.7)
[2022-01-04 05:49] LABS: Free T4 Free Thyroxine 1.25 ng/dL (0.82-1.77); T3 Free 1.6 PG/ML (2.0-4.4)
[2022-01-04 06:41] LABS: Glucose Point of Care 181 mg/dL (70-110)
[2022-01-04 06:41] LABS: Glucose Point of Care 204 mg/dL (70-110)
--- NOTE | 2022-01-04 08:00 | PC.NURSE ---
Patient laying in bed at this time. Patient awake but completely naked laying in bed. Patient disoriented at this time. bed locked and in lowest position. call light and personal items in reach. will continue plan of care
[2022-01-04] MEDS: insulin lispro 100 unit/1 mL SUBCUT ×2 (08:29→11:52)
[2022-01-04] MEDS: cholecalciferol (vitamin D3) 1,000 unit Tablet 2000 UNIT PO (08:31)
[2022-01-04] MEDS: pantoprazole DR 40 mg Tablet PO (08:31)
[2022-01-04] MEDS: docusate sodium 100 mg Capsule PO (08:32)
[2022-01-04] MEDS: atorvastatin 40 mg Tablet 20 MG PO (08:32)
[2022-01-04] MEDS: phosphorus 250 mg Tablet PO (08:39)
[2022-01-04] MEDS: magnesium sulfate premix 4 GM/100 ML PREMIX IV (08:44)
[2022-01-04] MEDS: aspirin 81 mg EC Tablet PO (11:53)
--- NOTE | 2022-01-04 12:34 | P.DS_ITS ---
Discharge Providers Date of Admission: 01/01/22 02:36 Date of Discharge: January 04, 2022 Attending Provider at Admission: Chris Lynne MD Attending Provider at Discharge: Chris Lynne MD Primary Care Provider: Juanjo Quiros Jr, MD Diagnoses at Discharge Discharge Diagnosis (1) Altered mental status: Status: Acute (2) Closed intertrochanteric fracture of left hip: Status: Acute (3) Hyponatremia: Status: Acute (4) Dementia: Status: Acute (5) Diabetes: Status: Acute (6) CVA (cerebral vascular accident): Status: Acute (7) ASHD (arteriosclerotic heart disease): Status: Acute (8) HTN (hypertension): Status: Acute (9) Myxedema coma: Status: Acute (10) Elevated troponin: Status: Acute (11) Closed hip fracture: Status: Acute Qualifiers: Encounter type: initial encounter Laterality: left Qualified Code(s): S72.002A - Fracture of unspecified part of neck of left femur, initial encounter for closed fracture (12) CKD (chronic kidney disease): Status: Acute (13) Dyslipidemia: Status: Acute (14) S/P CABG (coronary artery bypass graft): Status: Acute Reason for Visit Reason for Visit: LEFT HIP PAIN Hospital Course Hospital Course Radha Velásquez is a 81 year old female with a past medical history of dementia, history of CVA, history of CAD status post CABG hypertension, CKD, dyslipidemia, hypothyroidism, type 2 diabetes mellitus who presents [facility] from local residential due to a fall, left lower extremity pain.? Patient was admitted to [facility] for left hip fracture, status post left intramedullary nail for intra-trochanteric femur fracture, tolerated procedure well, discharged back to residential Patient was found to have myxedema coma during her hospitalization, TSH as high as 237.7, with UTI, requiring IV levothyroxine, Cytomel, and ICU admission for 24 hours, her TSH improved, no hemodynamic compromise. Will be discharged on 150 mcg of levothyroxine once daily. Recheck TSH, T3, T4 in 1 week. Patient was also found to have a UTI during hospitalization discharged on ciprofloxacin Patient was also found to have altered mental status likely secondary to UTI, myxedema, during hospitalization. Does have significant dementia at baseline. During hospitalization she continued to have episodes of agitation at times, ripping out her IVs, alert oriented to person, not to place, not to time. Her granddaughter tells me that sometimes she can recognize her, sometimes she cannot, and she has had a gradual decline in her cognitive functioning in the last year. Discharge back to residential. Physical Exam Const: COMMON NORMALS: no acute distress OTHER: Alert to person, not to place, not to time, takes out her IV, does follow commands, but does become agitated easily Resp: COMMON NORMALS: normal respiratory effort, No retractions, No use of accessory muscles and clear to auscultation bilaterally AUSCULTATION: clear to auscultation bilaterally Cardio: COMMON NORMALS: regular rate, regular rhythm, S1 normal heart sound present and S2 normal heart sound present RATE: regular rate RHYTHM: regular rhythm HEART SOUNDS: S1 normal heart sound present and S2 normal heart sound present GI: COMMON NORMALS: Normal to inspection, nondistended, normoactive bowel sounds present, Soft to palpation, non-tender and No hepatosplenomegaly present PALPATION: Yes Soft to palpation and Yes No hepatosplenomegaly present Extremity: COMMON NORMALS: no pedal edema Urinary Catheter Management: Fox: Cath Placed During This Visit: yes Reason for Continuing Indwelling Catheter: Accurate Measurement of Urinary Output in Critically Ill Patients Urinary Catheter Date of Insertion: 01/02/22 Urinary Catheter Time of Insertion: 10:00 Discharge Data Studies Completed and Pending Completed Studies During Hospitalization Category Date Time Status CT bony pelvis [id number] Urgent Cat Scan 01/01/22 00:[address] head wo con* [id number] Urgent Cat Scan 12/31/21 23:43 Completed XR chest 1V portable [id number] Urgent Exams 12/31/21 23:43 Completed XR hip LT 1V wo/w pel [id number] Routine Exams 01/03/22 11:22 Completed XR hip LT 1V wo/w pel [id number] Stat Exams 12/31/21 23:43 Completed Pending at discharge Category Date Time Status Urinalysis Stat Lab 12/31/21 23:43 Uncollected Radiology Impressions Chest X-Ray 12/31/21 23:43 IMPRESSION: 1. Mild cardiomegaly. 2. Nonspecific prominence of the interstitial markings which may be secondary to mild edema versus atypical viral infection. Head CT 12/31/21 23:43 IMPRESSION: 1. No acute intracranial hemorrhage or mass effect. 2. Changes of microvascular disease, and small old infarcts, details above. 3. Other findings discussed above. Pelvis CT 01/01/22 00:03 IMPRESSION: 1. Intertrochanteric left hip fracture. 2. Diverticulosis without diverticulitis. Hip X-Ray 01/03/22 11:22 IMPRESSION: 1. Internal orthopedic fixation involving an intertrochanteric fracture of the left hip. Alignment is satisfactory for healing. Laboratory Results WBC 9.6 10^3/uL (4.0-10.0) 01/04/22 04:40 RBC 3.13 10^6/uL (4.1-5.3) L 01/04/22 04:40 Hgb 9.9 g/dL (11.5-15.3) L 01/04/22 04:40 Hct 30.7 % (37.0-47.0) L 01/04/22 04:40 MCV 98.1 fl (81-99) D 01/04/22 04:40 MCH 31.6 pg (28.0-34.0) 01/04/22 04:40 MCHC 32.2 g/dL (30.0-36.0) 01/04/22 04:40 RDW 13.0 % (12.1-15.1) 01/04/22 04:40 Plt Count 261 10^3/cmm (130-400) 01/04/22 04:40 MPV 10.1 fL (7.4-10.4) 01/04/22 04:40 Neut % (Auto) 73.5 % 01/04/22 04:40 Lymph % (Auto) 12.3 % 01/04/22 04:40 Woodson % (Auto) 13.1 % 01/04/22 04:40 Eos % (Auto) 0.3 % 01/04/22 04:40 Baso % (Auto) 0.3 % 01/04/22 04:40 Neut # (Auto) 7.07 10^3/uL (1.8-7.7) 01/04/22 04:40 Lymph # (Auto) 1.2 10^3/uL (0.8-4.8) 01/04/22 04:40 Woodson # (Auto) 1.3 10^3/uL (0.2-0.9) H 01/04/22 04:40 Eos # (Auto) 0.0 10^3/uL (0.0-0.8) 01/04/22 04:40 Baso # (Auto) 0.0 10^3/uL (0.0-0.1) 01/04/22 04:40 Nucleated RBC % (auto) 0 % 01/04/22 04:40 Nucleated RBCs # 0.0 /100WBC 01/04/22 04:40 Sodium 132 mmol/L (136-145) L 01/04/22 04:40 Potassium 3.8 mmol/L (3.5-5.1) 01/04/22 04:40 Chloride 99 mmol/L (98-107) 01/04/22 04:40 Carbon Dioxide 21 mmol/L (22-29) L 01/04/22 04:40 Anion Gap 15.8 (5-19) 01/04/22 04:40 BUN 18 mg/dL (8-23) 01/04/22 04:40 Creatinine 0.8 mg/dL (0.5-0.9) 01/04/22 04:40 GFR Calculation Not Reportable 01/04/22 04:40 Glucose 183 mg/dL (65-115) H 01/04/22 04:40 POC Glucose 181 mg/dL (70-110) H 01/04/22 06:10 Estimat Average Glucose 192 01/01/22 00:05 Hemoglobin A1c 8.3 % (4.0-6.0) H 01/01/22 00:05 Calculated Osmolality 281 mOsm/kg (285-295) L 01/04/22 04:40 Lactate 1.5 mmol/L (0.5-2.2) 01/03/22 03:54 Calcium 9.8 mg/dL (8.5-10.5) 01/04/22 04:40 Phosphorus 1.6 mg/dL (2.5-4.5) L 01/04/22 04:40 Magnesium 1.5 mg/dL (1.7-2.3) L 01/04/22 04:40 Total Bilirubin 0.6 mg/dL (0.15-1.2) 01/04/22 04:40 AST 35 U/L (0-32) H 01/04/22 04:40 ALT 12 U/L (0-33) 01/04/22 04:40 Alkaline Phosphatase 82 IU/L (35-105) 01/04/22 04:40 Creatine Kinase 249 U/L (26-192) H 01/03/22 03:54 Troponin T Baseline 31 ng/L (0-10) H 01/01/22 03:27 Troponin T 120 Minute 30.04 ng/L (0-10) H 01/01/22 05:33 Delta Troponin T -0.96 ABS# (0-10) L 01/01/22 05:33 Troponin T Hi Sens 6Hr 34.98 ng/L (0-10) H 01/01/22 09:48 Troponin T Hi Sens 6Hr Delta 3.98 ng/L (0-12) 01/01/22 09:48 Total Protein 6.5 g/dL (6.6-8.7) L 01/04/22 04:40 Albumin 3.2 g/dL (3.5-5.2) L 01/04/22 04:40 Globulin 3.3 g/dL (1.3-4.6) 01/04/22 04:40 TSH 15.70 uIU/mL (0.27-4.20) H 01/04/22 04:40 Free T4 1.25 ng/dL (0.82-1.77) 01/04/22 04:40 Thyroxine (T4) 4.4 mcg/dL (5.1-11.9) L 01/01/22 07:21 Free T3 1.6 PG/ML (2.0-4.4) L 01/04/22 04:40 Random Cortisol 18.29 ug/dL (2.47-19.5) 01/01/22 07:21 Vitals Last Vital Signs Temp 97.6 F 01/04/22 11:05 Pulse 92 01/04/22 11:05 Resp 18 01/04/22 11:05 BP 132/55 01/04/22 11:05 Pulse Ox 92 01/04/22 11:05 Discharge Plan Discharge Patient Disposition: Xfer SNF Condition: Stable Prescriptions: New hydrocodone-acetaminophen 5-325 mg Tablet 1 tab PO Q6H PRN (Reason: Moderate Pain) 7 Days Qty: 28 0RF levothyroxine 150 mcg Tablet 150 mcg PO QAM 30 Days Qty: 30 0RF ciprofloxacin HCl [Cipro] 500 mg tablet 500 mg PO BID 2 Days Qty: 4 0RF Continued lovastatin 20 mg tablet 20 mg PO BEDTIME 0RF metformin 500 mg tablet 500 mg PO BID 0RF Tylenol 325 mg Tablet 650 mg PO Q6H PRN (Reason: Pain) 0RF Aspir-81 81 mg Tablet,Delayed Release (Dr/Ec) 81 mg PO DAILY 0RF Milk of Magnesia 400 mg/5 mL Suspension 30 ml PO DAILY PRN (Reason: Constipation) 0RF Dulcolax (bisacodyl) 10 mg Suppository 10 mg NM DAILY PRN (Reason: Constipation) 0RF Fleet Enema 19-7 gram/118 mL Enema 118 ml NM DAILY PRN (Reason: Constipation) 0RF Nitrostat 0.4 mg Tablet, Sublingual 0.4 mg SUBLINGUAL Q5M PRN (Reason: Chest Pain) 0RF Rx Instructions: do not exceed 3 doses per episode Colace 100 mg Capsule 200 mg PO BEDTIME 0RF Remeron 15 mg Tablet 7.5 mg PO BEDTIME 0RF gabapentin 100 mg Capsule 100 mg PO BEDTIME 0RF House Supplement 90 ml PO TID 0RF Rx Instructions: between meals Discontinued levothyroxine 88 mcg tablet 88 mcg PO QAM 0RF Discharge Orders: Discharge Order (Routine); Ordered 01/04/22 Ordered By: Chris Lynne Referrals: [facility] [Outside] Juanjo Quiros Jr, MD [Primary Care Provider] - Discharge Diet: Advance as tolerated Discharge Activity: Resume usual activity Activity Restrictions/Additional Instructions: -For myxedema coma, hypothyroidism, recheck TSH/free T3/free T4 in 1 week, then again in 6 weeks -Take antibiotics 1 day -Follow-up with primary care provider in 1 week Discharge Attestations Time Spent in Discharge Care*: less than 30 min Quality Metrics Clinical Quality Measures [ No reported AMI, CVA or VTE this stay] Coding Level of Care Code Acute [facility] note Diagnoses Altered mental status R41.82 Closed intertrochanteric fracture of left hip S72.142A Hyponatremia E87.1 Dementia F03.90 Diabetes E11.9 CVA (cerebral vascular accident) I63.9 ASHD (arteriosclerotic heart disease) I25.10 HTN (hypertension) I10 Myxedema coma E03.5 Elevated troponin R77.8 Closed hip fracture S72.002A Encounter type: initial encounter Laterality: left CKD (chronic kidney disease) N18.9 Dyslipidemia E78.5 S/P CABG (coronary artery bypass graft) Z95.1
--- NOTE | 2022-01-04 12:34 | PC.SOCIAL ---
Pg 2 IMM Explained to pt's granddaughter, via phone PG 2 IMM. No questions voiced. Provided pt a copy. Initialed, dated, & timed a copy & placed in chart.
[2022-01-04 14:12] LABS: SARS Covid-2 Antigen Negative (Negative)
--- NOTE | 2022-01-04 14:49 | PC.OT ---
OT EVALUATION HELD TODAY THE PATIENT IS SCHEDULED FOR DISCHARGE TODAY
--- NOTE | 2022-01-04 16:45 | PC.NURSE ---
REPORT CALLED TO YOHANNES DIA AT [facility]. PATIENT GOING BY EMS.
[2022-01-04 18:10] LABS: Glucose Point of Care 202 mg/dL (70-110)
== END 2022-01-04 16:50 | disposition skilled nursing facility (03) | DRG 480 ==
LOC: ER 01-01 02:55 → MEDSURG 01-01 08:39 → ICU 01-01 08:39 → MEDSURG 01-03 12:46
PROVIDERS: Orthopaedic Surgery; Admitting Provider Family Medicine; Emergency Provider Emergency Medicine; PCP Family Medicine; Visit Provider Family Medicine
PROC: 0QH706Z Insertion of Intramedullary Internal Fixation Device into Left Upper Femur, Open Approach (ICD-10-PCS; CPT 27245; principal; 2022-01-03 09:50)
DX: S72.142A Displaced intertrochanteric fracture of left femur, initial encounter for closed fracture (principal); E03.5 Myxedema coma; N39.0 Urinary tract infection, site not specified; W19.XXXA Unspecified fall, initial encounter; Y92.129 Unspecified place in nursing home as the place of occurrence of the external cause; F03.90 Unspecified dementia, unspecified severity, without behavioral disturbance, psychotic disturbance, mood disturbance, and anxiety; I25.10 Atherosclerotic heart disease of native coronary artery without angina pectoris; Z95.1 Presence of aortocoronary bypass graft; Z86.73 Personal history of transient ischemic attack (TIA), and cerebral infarction without residual deficits; E11.22 Type 2 diabetes mellitus with diabetic chronic kidney disease; I12.9 Hypertensive chronic kidney disease with stage 1 through stage 4 chronic kidney disease, or unspecified chronic kidney disease; N18.9 Chronic kidney disease, unspecified; E78.5 Hyperlipidemia, unspecified; Z85.850 Personal history of malignant neoplasm of thyroid; E86.0 Dehydration; E83.52 Hypercalcemia; Z79.82 Long term (current) use of aspirin; Z79.84 Long term (current) use of oral hypoglycemic drugs
CPT/HCPCS: 36415; 36416; 51702; 70450; 71045; 72192; 73501; 73502; 76000; 80053; 82533; 82550; 82962; 83036; 83605; 83735; 84100; 84436; 84439; 84443; 84481; 84484; 85025; 87426; 92610; 93005; 94664; 96361; 96372; 96374; 96375; 99285; C1713; C9113; J0696; J1630; J1650; J1720; J1815; J1940; J2060; J2250; J2270; J2370; J2405; J2704; J3010; J3475; J3490; J7040

== ENCOUNTER → 2022-01-18 10:05 | Outpatient (BNVA) | payer MEDICARE, MEDICAID, SELFPAY | PROVIDERS: PCP Family Medicine; Visit Provider Physician Assistant | DX: S72.142D Displaced intertrochanteric fracture of left femur, subsequent encounter for closed fracture with routine healing (principal); X58.XXXD Exposure to other specified factors, subsequent encounter | CPT/HCPCS: 73502; 99024; 99999 ==